=== PATIENT | female | born 1955 | race Caucasian/White ===

== ENCOUNTER → 2023-02-18 | Outpatient (CLI) | payer MEDICARE, OTHER | LOC: LAB SHORT 11:32 → PLD 11:32 → LAB 11:32 | DX: D04.5 Carcinoma in situ of skin of trunk (principal) | CPT/HCPCS: 88305 ==

== ENCOUNTER 2024-01-28 12:37 | Day surgery (SDC) | payer MEDICARE, OTHER ==
[~2024-01-28] VITALS: Ht 162.6 cm; Wt 69.1 kg
[~2024-01-28 12:37] MED LIST: AMLO10 PO; Balanced Salt Epinephrine Irrigation Solution 500 mL IR SCH; Lidocaine HCl/Pf 1% 5 ML VIAL XX SCH; Moxifloxacin HCL 0.5 MG/0.1 ML 0.4MLSYR LEFTEYE SCH; PHENYLEPHRINE\\TROPICAMIDE\\TETRACAINE OPHTHALMIC DILATING SOLN LEFTEYE PRN; Povidone-Iodine 450 DROP/30 ML Solution LEFTEYE SCH; Triamcinolone Inj Susp 40 MG / ML 1ML Vial INJ SCH; Triamcinolone Inj Susp 40 MG / ML 1ML Vial ONE; ZESTRIL40 M1 PO
[2024-01-28] MEDS ORDERED: Midazolam HCl 1MG / ML 2ML Vial ONE (13:45)
[2024-01-28] MEDS ORDERED: Tetracaine HCl 0.5% Opth Soln 15 ml LEFTEYE ONE (13:49)
[2024-01-28] MEDS ORDERED: Erythromycin 0.5% Opth Oint 1 gm ONE (14:18)
[2024-01-28 14:43] VITALS: BP 146/77
--- NOTE | 2024-01-28 14:58 | NUR ---
01/28/24 1458 LYDIA STOREY PT DECLINED USE OF WC. SBA TO CAR BY RN
== END 2024-01-28 14:43 | disposition home or self-care (01) ==
LOC: ORSCSDS 12:37
PROVIDERS: Ophthalmology
PROC: 08RK3JZ Replacement of Left Lens with Synthetic Substitute, Percutaneous Approach (ICD-10-PCS; principal; 2024-01-28 14:00)
DX: H25.813 Combined forms of age-related cataract, bilateral (principal); H21.81 Floppy iris syndrome; I10 Essential (primary) hypertension; Z79.899 Other long term (current) drug therapy
CPT/HCPCS: A9270; J2250; J3301; V2632

== ENCOUNTER → 2024-03-25 | Outpatient (CLI) | payer MEDICARE, OTHER ==
[~2024-03-25] MED LIST changes: -Balanced Salt Epinephrine Irrigation Solution 500 mL IR SCH; -Lidocaine HCl/Pf 1% 5 ML VIAL XX SCH; -Moxifloxacin HCL 0.5 MG/0.1 ML 0.4MLSYR LEFTEYE SCH; -PHENYLEPHRINE\\TROPICAMIDE\\TETRACAINE OPHTHALMIC DILATING SOLN LEFTEYE PRN; -Povidone-Iodine 450 DROP/30 ML Solution LEFTEYE SCH; -Triamcinolone Inj Susp 40 MG / ML 1ML Vial INJ SCH; -Triamcinolone Inj Susp 40 MG / ML 1ML Vial ONE
== END ==
LOC: LAB SHORT 16:59 → LAB 16:59
DX: N39.0 Urinary tract infection, site not specified (principal)
CPT/HCPCS: 87077; 87086; 87186

== ENCOUNTER → 2024-04-08 | Outpatient (CLI) | payer MEDICARE, OTHER ==
[2024-04-08 13:07] LABS: BASOPHILS ABSOLUTE AUTO 0.07 K/mm3 (0.00-0.23); BASOPHILS PERCENT AUTO 1 % (0-2); EOSINOPHILS ABSOLUTE AUTO 0.02 K/mm3 (0.00-0.68); EOSINOPHILS PERCENT AUTO 0 % (0-6); Hematocrit 34.7 % (33.0-51.0); Hemoglobin 11.9 g/dL (11.5-16.0); IMMATURE GRAN ABSOLUTE AUTO 0.15 K/mm3 (0.00-0.10); IMMATURE GRAN PERCENT AUTO 1 % (0-1); LYMPHOCYTES ABSOLUTE AUTO 1.73 K/mm3 (0.84-5.20); LYMPHOCYTES PERCENT AUTO 11 % (21-46); MONOCYTES ABSOLUTE AUTO 1.23 K/mm3 (0.16-1.47); MONOCYTES PERCENT AUTO 8 % (4-13); Mean Corpuscular HGB 31.2 pg (26.0-34.0); Mean Corpuscular HGB Conc 34.3 g/dL (31.5-36.5); Mean Corpuscular Volume 91 fL (80-100); Mean Platelet Volume 9.1 fL (9.1-12.4); NEUTROPHILS PERCENT AUTO 79 % (41-73); Platelet Count 436 K/mm3 (150-400); RDW Coefficient Variation 13.2 % (11.7-14.2); RDW Standard Deviation 43.2 fL (35.1-46.3); Red Blood Cell Count 3.82 M/mm3 (3.80-5.20)
[2024-04-08 13:16] LABS: Albumin/Globulin Ratio 0.7 (0.8-1.8); Bilirubin, Total 0.6 mg/dL (0.1-1.0); Bun/Creatinine Ratio 14.7 (12.0-20.0); Calcium, Blood 8.9 mg/dL (8.5-10.1); Creatinine, Blood 1.29 mg/dL (0.40-1.00); Globulin, Blood 4.4 g/dL (2.2-4.0); Potassium, Blood 3.7 mmol/L (3.5-5.5); Total Protein, Blood 7.4 g/dL (6.4-8.2)
== END | disposition home or self-care (01) ==
LOC: LAB SHORT 13:00 → LAB 13:00
DX: R10.2 Pelvic and perineal pain (principal); N39.0 Urinary tract infection, site not specified
CPT/HCPCS: 80053; 85025; 87077; 87086; 87186

== ENCOUNTER → 2024-04-09 | Outpatient (CLI) | payer MEDICARE, OTHER ==
[2024-04-09 13:03] LABS: BASOPHILS ABSOLUTE AUTO 0.09 K/mm3 (0.00-0.23); BASOPHILS PERCENT AUTO 1 % (0-2); EOSINOPHILS ABSOLUTE AUTO 0.11 K/mm3 (0.00-0.68); EOSINOPHILS PERCENT AUTO 1 % (0-6); Hematocrit 32.7 % (33.0-51.0); Hemoglobin 10.9 g/dL (11.5-16.0); IMMATURE GRAN ABSOLUTE AUTO 0.11 K/mm3 (0.00-0.10); IMMATURE GRAN PERCENT AUTO 1 % (0-1); LYMPHOCYTES ABSOLUTE AUTO 2.14 K/mm3 (0.84-5.20); LYMPHOCYTES PERCENT AUTO 15 % (21-46); MONOCYTES ABSOLUTE AUTO 1.22 K/mm3 (0.16-1.47); MONOCYTES PERCENT AUTO 9 % (4-13); Mean Corpuscular HGB 30.7 pg (26.0-34.0); Mean Corpuscular HGB Conc 33.3 g/dL (31.5-36.5); Mean Corpuscular Volume 92 fL (80-100); Mean Platelet Volume 8.8 fL (9.1-12.4); NEUTROPHILS PERCENT AUTO 74 % (41-73); Platelet Count 418 K/mm3 (150-400); RDW Coefficient Variation 13.1 % (11.7-14.2); RDW Standard Deviation 44.4 fL (35.1-46.3); Red Blood Cell Count 3.55 M/mm3 (3.80-5.20); White Blood Cell Count 14.37 K/mm3 (4.00-11.30)
[2024-04-09 13:17] LABS: Albumin, Blood 2.9 g/dL (3.4-5.0); Albumin/Globulin Ratio 0.7 (0.8-1.8); Bilirubin, Total 0.5 mg/dL (0.1-1.0); Bun/Creatinine Ratio 14.7 (12.0-20.0); Calcium, Blood 8.8 mg/dL (8.5-10.1); Creatinine, Blood 1.29 mg/dL (0.40-1.00); Potassium, Blood 3.6 mmol/L (3.5-5.5); Total Protein, Blood 6.9 g/dL (6.4-8.2)
== END | disposition home or self-care (01) ==
LOC: LAB SHORT 12:59 → LAB 12:59
PROVIDERS: Emergency Medicine
DX: N39.0 Urinary tract infection, site not specified (principal)
CPT/HCPCS: 80053; 85025

== ENCOUNTER → 2024-04-10 | Outpatient (CLI) | payer MEDICARE, OTHER ==
[2024-04-10 11:36] LABS: BASOPHILS ABSOLUTE AUTO 0.09 K/mm3 (0.00-0.23); BASOPHILS PERCENT AUTO 1 % (0-2); EOSINOPHILS ABSOLUTE AUTO 0.11 K/mm3 (0.00-0.68); EOSINOPHILS PERCENT AUTO 1 % (0-6); Hematocrit 32.3 % (33.0-51.0); IMMATURE GRAN ABSOLUTE AUTO 0.15 K/mm3 (0.00-0.10); IMMATURE GRAN PERCENT AUTO 1 % (0-1); LYMPHOCYTES ABSOLUTE AUTO 1.86 K/mm3 (0.84-5.20); LYMPHOCYTES PERCENT AUTO 14 % (21-46); MONOCYTES ABSOLUTE AUTO 1.05 K/mm3 (0.16-1.47); MONOCYTES PERCENT AUTO 8 % (4-13); Mean Corpuscular HGB Conc 34.1 g/dL (31.5-36.5); Mean Corpuscular Volume 91 fL (80-100); Mean Platelet Volume 8.9 fL (9.1-12.4); NEUTROPHILS ABSOLUTE AUTO 9.86 K/mm3 (1.96-9.15); NEUTROPHILS PERCENT AUTO 75 % (41-73); Platelet Count 457 K/mm3 (150-400); RDW Coefficient Variation 13.1 % (11.7-14.2); RDW Standard Deviation 43.4 fL (35.1-46.3); Red Blood Cell Count 3.55 M/mm3 (3.80-5.20); White Blood Cell Count 13.12 K/mm3 (4.00-11.30)
[2024-04-10 11:42] LABS: Bun/Creatinine Ratio 15.7 (12.0-20.0); Calcium, Blood 8.8 mg/dL (8.5-10.1); Creatinine, Blood 1.21 mg/dL (0.40-1.00); Potassium, Blood 3.7 mmol/L (3.5-5.5)
== END | disposition home or self-care (01) ==
LOC: LAB SHORT 11:32 → LAB 11:32
PROVIDERS: Physician Assistant Medical
DX: N28.9 Disorder of kidney and ureter, unspecified (principal)
CPT/HCPCS: 80048; 85025

== ENCOUNTER → 2024-04-21 | Outpatient (CLI) | payer MEDICARE, OTHER ==
[~2024-04-21] MED LIST changes: +OXYC5 PO
== END ==
LOC: LAB 17:11 → LAB SHORT 17:11
DX: R10.32 Left lower quadrant pain (principal); N17.9 Acute kidney failure, unspecified
CPT/HCPCS: 87086

== ENCOUNTER 2024-04-27 16:38 | Inpatient (IN) | payer MEDICARE, OTHER ==
[~2024-04-27] VITALS: Ht 162.6 cm; Wt 68.0 kg
[~2024-04-27 16:38] MED LIST changes: -OXYC5 PO
[2024-04-27 17:40] LABS: BASOPHILS ABSOLUTE AUTO 0.08 K/mm3 (0.00-0.23); BASOPHILS PERCENT AUTO 1 % (0-2); EOSINOPHILS ABSOLUTE AUTO 0.05 K/mm3 (0.00-0.68); EOSINOPHILS PERCENT AUTO 0 % (0-6); Hematocrit 32.1 % (33.0-51.0); Hemoglobin 11.2 g/dL (11.5-16.0); IMMATURE GRAN ABSOLUTE AUTO 0.16 K/mm3 (0.00-0.10); IMMATURE GRAN PERCENT AUTO 1 % (0-1); LYMPHOCYTES ABSOLUTE AUTO 2.22 K/mm3 (0.84-5.20); LYMPHOCYTES PERCENT AUTO 15 % (21-46); MONOCYTES ABSOLUTE AUTO 1.18 K/mm3 (0.16-1.47); MONOCYTES PERCENT AUTO 8 % (4-13); Mean Corpuscular HGB 30.9 pg (26.0-34.0); Mean Corpuscular HGB Conc 34.9 g/dL (31.5-36.5); Mean Corpuscular Volume 89 fL (80-100); Mean Platelet Volume 9.1 fL (9.1-12.4); NEUTROPHILS ABSOLUTE AUTO 11.64 K/mm3 (1.96-9.15); NEUTROPHILS PERCENT AUTO 76 % (41-73); Platelet Count 495 K/mm3 (150-400); RDW Coefficient Variation 14.5 % (11.7-14.2); RDW Standard Deviation 46.3 fL (35.1-46.3); Red Blood Cell Count 3.62 M/mm3 (3.80-5.20); White Blood Cell Count 15.33 K/mm3 (4.00-11.30)
[2024-04-27 18:25] LABS: Albumin, Blood 2.7 g/dL (3.4-5.0); Albumin/Globulin Ratio 0.7 (0.8-1.8); Bilirubin, Total 0.3 mg/dL (0.1-1.0); Bun/Creatinine Ratio 22.2 (12.0-20.0); Calcium, Blood 8.5 mg/dL (8.5-10.1); Creatinine, Blood 0.94 mg/dL (0.40-1.00); Globulin, Blood 3.8 g/dL (2.2-4.0); Total Protein, Blood 6.5 g/dL (6.4-8.2)
[2024-04-27 21:06] LABS: Source, Urine Clean Catch
[2024-04-27 21:10] LABS: Appearance, Urine Clear (Clear); Bilirubin, Urine Neg (Neg); Blood, Urine 1+ (Neg); Color, Urine Yellow (P-Yellow); Glucose Qualitative, Urine Neg (Neg); Ketones, Urine 1+ (Neg); Leukocyte Esterase, Urine 3+ (Neg); Nitrite, Urine Neg (Neg); Protein, Urine 2+ (Neg); Urobilinogen, Urine NORM (Normal)
[2024-04-27 21:22] LABS: Bacteria Many /hpf; Granular Casts 0-2 /lpf (0); Squamous Epithelial Cells Mod /hpf (Few); Transitional Epithelial Cells Rare /hpf (0-Rare)
[2024-04-27] MEDS ORDERED: NS 1,000 ML IV SCH (21:55)
[2024-04-27] MEDS ORDERED: CefTRIAXone Sodium 1,000 MG in NS 100 ML IV ONE (22:25)
[2024-04-27] MEDS ORDERED: Ondansetron HCl 2 MG / ML 2ML Vial IV PRN (22:55)
[2024-04-27] MEDS ORDERED: FLU VACC TS2024-25(6MOS UP)/PF 45 MCG/0.5 ML SYRINGE IM ONE (22:55)
[2024-04-27] MEDS ORDERED: NS 1,000 ML IV ONE (22:55)
[2024-04-27] MEDS ORDERED: FentaNYL Citrate 50 MCG/ML 2 ML Injection IV PRN (23:15)
--- NOTE | 2024-04-27 23:20 | NUR ---
PT HERE VIA WHEELCHAIR FROM ER. PT AMBULATORY TO MEDICAL FLOOR BED. PT IS IRRITABLE SHE REPORTS SHE WASN'T "ANTICIPATING BEING ADMITTED." REPORT FROM ER IS PT HAS BEEN UNSUCCESSFUL IN TREATING A UTI AN OUTPATIENT. PT DENIES ANY PAIN AT THIS TIME. PT IS NPO. CONSULT IN PLACE FOR DR. BUSTOS. SEE CT SCAN RESULTS. PT REPORTS URINATION HAS BEEN SLOW WITH BURNING. CALL LIGHT WITHIN REACH. BED IN LOW POSITION. PAS PLACED ON.
[2024-04-27 23:28] VITALS: BP 117/70
[2024-04-28] VITALS (9 sets, daily range): BP systolic 104–137; BP diastolic 55–85
--- NOTE | 2024-04-28 03:44 | NUR ---
BLADDER SCAN 174CC AFTER URINATION. CALL LIGHT WITHIN REACH. BED IN LOW POSITION.
--- NOTE | 2024-04-28 04:15 | NUR ---
SHIFT SUMMARY - NO ACUTE CHANGES SINCE ADMIT LAST NOC. PT UP TO BRP WITH CLEAR STRAW COLORED URINE OUT. BLADDER SCAN SHOWED 174 CC URINE PVR. PT'S ABDOMEN IS FIRM TO PALPATION, HOWEVER SEE RECENT CT SCAN REPORT. PT HAS A PELVIC MASS - GYNECOLOGY CONSULT IN PLACE, DR. BHANDARI CONSULT IN PLACE FOR POTENTIAL NEPHROSTOMY TUBE. PT USES THE CALL LIGHT APPROPRIATELY. PAS ON. PT IS NPO.
--- NOTE | 2024-04-28 04:27 | NUR ---
I SPOKE TO DR. MORENO - UPDATED HIM ON URINE OUTPUT OF 100, AND BLADDER SCAN RESULTS OF 174 - NO ORDER CHANGES. RECEIVED ORDER FOR TYLENOL - PT REQUESTING TYLENOL FOR PAIN.
[2024-04-28] MEDS ORDERED: Acetaminophen 325 MG TABLET PO PRN (04:30)
[2024-04-28 05:25] LABS: BASOPHILS ABSOLUTE AUTO 0.08 K/mm3 (0.00-0.23); BASOPHILS PERCENT AUTO 1 % (0-2); EOSINOPHILS ABSOLUTE AUTO 0.09 K/mm3 (0.00-0.68); EOSINOPHILS PERCENT AUTO 1 % (0-6); Hematocrit 30.1 % (33.0-51.0); Hemoglobin 10.2 g/dL (11.5-16.0); IMMATURE GRAN ABSOLUTE AUTO 0.14 K/mm3 (0.00-0.10); IMMATURE GRAN PERCENT AUTO 1 % (0-1); LYMPHOCYTES PERCENT AUTO 21 % (21-46); MONOCYTES ABSOLUTE AUTO 1.02 K/mm3 (0.16-1.47); MONOCYTES PERCENT AUTO 9 % (4-13); Mean Corpuscular HGB 30.5 pg (26.0-34.0); Mean Corpuscular HGB Conc 33.9 g/dL (31.5-36.5); Mean Corpuscular Volume 90 fL (80-100); Mean Platelet Volume 8.8 fL (9.1-12.4); NEUTROPHILS ABSOLUTE AUTO 8.05 K/mm3 (1.96-9.15); NEUTROPHILS PERCENT AUTO 68 % (41-73); Platelet Count 448 K/mm3 (150-400); RDW Coefficient Variation 14.8 % (11.7-14.2); RDW Standard Deviation 48.9 fL (35.1-46.3); Red Blood Cell Count 3.34 M/mm3 (3.80-5.20); White Blood Cell Count 11.88 K/mm3 (4.00-11.30)
[2024-04-28 05:55] LABS: Albumin, Blood 2.4 g/dL (3.4-5.0); Albumin/Globulin Ratio 0.8 (0.8-1.8); Bilirubin, Total 0.3 mg/dL (0.1-1.0); Bun/Creatinine Ratio 22.5 (12.0-20.0); Calcium, Blood 7.9 mg/dL (8.5-10.1); Creatinine, Blood 0.84 mg/dL (0.40-1.00); Globulin, Blood 3.2 g/dL (2.2-4.0); Total Protein, Blood 5.6 g/dL (6.4-8.2)
[2024-04-28 06:12] LABS: Alpha Feto Protein, Tumor Mkr 3.3 ng/mL (0.0-8.0); Carcinoembryonic Antigen 7.7 ng/mL (0.0-3.0)
[2024-04-28] MEDS ORDERED: NS 500 ML IV ONE ×2 (10:41→10:43)
[2024-04-28] MEDS ORDERED: Midazolam HCl 1MG / ML 2ML Vial ONE (10:42)
[2024-04-28] MEDS ORDERED: FentaNYL Citrate 50 MCG/ML 2 ML Injection ONE (10:43)
[2024-04-28] MEDS ORDERED: OxyCODONE HCL 5 MG TAB PO PRN (13:25)
[2024-04-28] MEDS ORDERED: OXYC5 PO ×2 (16:22)
--- NOTE | 2024-04-28 18:13 | NUR ---
PT DISCHARGED HOME WITH HOME HEALTH, UROSTOMY BAG CHANGED PRIOR TO DISCHARGE AFTER PT SAT ON AND POPPED BAG. PT EDUCATION PROVIDED ON UROSTOMY CARE. DISCHARGE INSTRUCTIONS DISCUSSED WITH PT. PT LEFT BY WHEEL CHAIR ACCOMPANIED BY FRIEND.
[2024-04-28] MEDS ORDERED: CefTRIAXone Sodium 1,000 MG in NS 100 ML IV SCH (21:00)
== END 2024-04-28 17:41 | disposition home health service (06) | DRG 694 ==
LOC: ER 16:38 → MEDS 16:39
PROVIDERS: Student in an Organized Health Care Education/Training Program; ADMIT Internal Medicine
PROC: 0T9330Z Drainage of Right Kidney Pelvis with Drainage Device, Percutaneous Approach (ICD-10-PCS; principal; 2024-04-28)
DX: N13.39 Other hydronephrosis (principal); F17.213 Nicotine dependence, cigarettes, with withdrawal; I10 Essential (primary) hypertension; E78.5 Hyperlipidemia, unspecified; R19.09 Other intra-abdominal and pelvic swelling, mass and lump; K74.60 Unspecified cirrhosis of liver; Z88.0 Allergy status to penicillin; N17.9 Acute kidney failure, unspecified; R10.32 Left lower quadrant pain
CPT/HCPCS: 36415; 50432; 74176; 76937; 80053; 81001; 82105; 82378; 83690; 85025; 86304; 87086; 93005; 93010; 96365; 96375; 99152; 99285-25; A9270; C1729; C1769; G0378; J0696; J2250; J3010; J7030; J7040; Q9967

== ENCOUNTER 2024-06-21 11:51 | Day surgery (SDC) | payer MEDICARE, OTHER ==
[~2024-06-21] VITALS: Ht 162.6 cm; Wt 56.8 kg
[2024-06-21] VITALS (8 sets, daily range): BP systolic 119–149; BP diastolic 73–90
[~2024-06-21 11:51] MED LIST changes: +ACET325 PO; +CeFAZolin Sodium 2,000 MG in NS 100 ML IV SCH; +FURO20 PO; +NS 1,000 ML IV SCH; +OXYC5 PO; +SENN187 PO; +SPIR50 PO
[2024-06-21] MEDS ORDERED: Lidocaine HCL 1% 10 ML MDV ONE (12:23)
[2024-06-21] MEDS ORDERED: Ondansetron HCl 2 MG / ML 2ML Vial ONE (12:27)
[2024-06-21] MEDS ORDERED: Dexamethasone Sod Phos 10 MG/ML 1ML VIAL ONE (12:27)
[2024-06-21] MEDS ORDERED: propofoL 40 ML IV ONE (12:34)
[2024-06-21] MEDS ORDERED: Acetaminophen 500 MG Tab PO ONE (12:45)
[2024-06-21] MEDS ORDERED: FentaNYL Citrate 50 MCG/ML 2 ML Injection ONE (12:59)
[2024-06-21] MEDS ORDERED: Ketorolac Tromethamine 30mg Vial ONE (13:24)
--- NOTE | 2024-06-21 13:32 | NUR ---
06/21/24 1332 Roney,Meenu SCD STOCKINGS NOT APPLIED TO PATIENTS BILATERAL LOWER LEGS PER DUE TO BILATERAL LOWER LEG AND FOOT WOUNDS. BILATERAL LOWER LEGS AND FEET WERE DRESSED IN DAVE BANDAGES PRIOR TO ENTRY IN OR.
[2024-06-21] MEDS ORDERED: HYDROcodone 5-APAP 325 TAB PO PRN (13:50)
--- NOTE | 2024-06-21 14:13 | NUR ---
REPORT RECEIVED FROM CHRISTIANO RAE. VSS. PT A&OX4. PT ON RA. PT ABLE TO REPOSITION SELF IN BED. PT REQUESTING PO FLUIDS AND TOLERATING THEM WELL. PT HAS DERMABOND TO R CHEST MEDIPORT THAT IS CDI. PT DENIES PAIN, NAUSEA OR OTHER DISCOMFORTS.
--- NOTE | 2024-06-21 14:41 | NUR ---
Patient up to Ambulate independently. Gait steady. VSS AND CONSISTENT WITH PT BASELINE. PT HAS NO COMPLAINTS AND VERBALIZES READINESS TO GO HOME. Discharge instructions reviewed with patient. Patient verbalizes understanding. Copy given to patient to take home. Dressing to procedure site clean, dry, intact with no visible drainage, swelling, erythema or bruising noted. Patient States Post-Procedure ride home has been arranged. Discharged via wheelchair to private car for ride home. PT BELONGINGS RETURNED TO PT.
== END 2024-06-21 14:40 ==
LOC: ORSCMMR 11:51
PROVIDERS: Surgery
PROC: B543ZZA Ultrasonography of Right Jugular Veins, Guidance (ICD-10-PCS; principal; 2024-06-21 12:00)
PROC: 0JH63WZ Insertion of Totally Implantable Vascular Access Device into Chest Subcutaneous Tissue and Fascia, Percutaneous Approach (ICD-10-PCS; principal; 2024-06-21 12:00)
PROC: 05HM33Z Insertion of Infusion Device into Right Internal Jugular Vein, Percutaneous Approach (ICD-10-PCS; principal; 2024-06-21 12:00)
DX: C54.8 Malignant neoplasm of overlapping sites of corpus uteri (principal); I10 Essential (primary) hypertension; J43.9 Emphysema, unspecified; I25.2 Old myocardial infarction; F17.210 Nicotine dependence, cigarettes, uncomplicated; Z79.899 Other long term (current) drug therapy
CPT/HCPCS: 77001; A9270; C1788; J0690; J1100; J1642; J1885; J2003; J2405; J2704; J3010; J7030

== ENCOUNTER 2024-06-28 12:10 | Observation (INO) | payer MEDICARE, OTHER ==
[~2024-06-28] VITALS: Ht 162.6 cm; Wt 59.8 kg
[~2024-06-28 12:10] MED LIST changes: -CeFAZolin Sodium 2,000 MG in NS 100 ML IV SCH; -NS 1,000 ML IV SCH
[2024-06-28 12:41] LABS: Hematocrit 28.6 % (33.0-51.0); Hemoglobin 9.8 g/dL (11.5-16.0); Mean Corpuscular HGB 30.5 pg (26.0-34.0); Mean Corpuscular HGB Conc 34.3 g/dL (31.5-36.5); Mean Corpuscular Volume 89 fL (80-100); Mean Platelet Volume 9.3 fL (9.1-12.4); Platelet Count 199 K/mm3 (150-400); RDW Standard Deviation 52.7 fL (35.1-46.3); Red Blood Cell Count 3.21 M/mm3 (3.80-5.20)
[2024-06-28 13:21] LABS: Albumin, Blood 1.9 g/dL (3.4-5.0); Albumin/Globulin Ratio 0.6 (0.8-1.8); Bilirubin, Total 0.6 mg/dL (0.1-1.0); Bun/Creatinine Ratio 28.7 (12.0-20.0); Creatinine, Blood 1.78 mg/dL (0.40-1.00); Globulin, Blood 3.3 g/dL (2.2-4.0); Potassium, Blood 4.5 mmol/L (3.5-5.5); Total Protein, Blood 5.2 g/dL (6.4-8.2)
[2024-06-28 13:24] LABS: BAND PERCENT MAN 5 % (0-8); BASOPHILS PERCENT MAN 0 % (0-2); EOSINOPHILS PERCENT MAN 0 % (0-6); LYMPHOCYTES ABSOLUTE MAN 0.93 K/mm3 (0.84-5.20); LYMPHOCYTES PERCENT MAN 3 % (21-46); MONOCYTES ABSOLUTE MAN 1.24 K/mm3 (0.16-1.47); MONOCYTES PERCENT MAN 4 % (4-13); NEUTROPHILS ABSOLUTE MAN 28.83 K/mm3 (1.96-9.15); SEG NEUTROPHILS PERCENT MAN 88 % (41-73); TOTAL CELLS COUNTED 100
[2024-06-28 14:14] LABS: Influenza A, PCR NEGATIVE (NEGATIVE); Influenza B, PCR NEGATIVE (NEGATIVE); Resp Syncytial Virus, PCR NEGATIVE (NEGATIVE); SARS-Cov-2 (COVID-19) PCR, MMC NEGATIVE (NEGATIVE)
[2024-06-28] MEDS ORDERED: LevoFLOXacin 750 MG/D5W 150ML 150 ML IV ONE (14:35)
[2024-06-28] MEDS ORDERED: Lactated Ringer's 1,000 ML IV ONE (14:35)
[2024-06-28] MEDS ORDERED: MetroNIDAZOLE 500MG/NS 100 ml 100 ML IV ONE (14:35)
[2024-06-28] MEDS ORDERED: HYDROmorphone HCl/Pf 1MG SYR IV PRN (17:40)
[2024-06-28] MEDS ORDERED: Morphine Sulfate 20 MG/1ML 1 ML Oral Syringe SL PRN (17:40)
[2024-06-28] MEDS ORDERED: Morphine Sulfate 10 MG/ML 1MLSYR IV PRN (17:40)
[2024-06-28] MEDS ORDERED: LORazepam 1 MG Tab PO PRN (17:40)
[2024-06-28] MEDS ORDERED: Acetaminophen 325 MG TABLET PO PRN (17:45)
[2024-06-28] MEDS ORDERED: Atropine Sulfate 1% Opth Soln 2ML BTL SL PRN (17:45)
[2024-06-28] MEDS ORDERED: Promethazine HCl 25 MG Tab PO PRN (17:45)
[2024-06-28] MEDS ORDERED: Promethazine HCl 25 MG Supp PR PRN (17:45)
[2024-06-28] MEDS ORDERED: Acetaminophen 650 MG Supp PR PRN (17:45)
[2024-06-28] MEDS ORDERED: Ondansetron HCl 2 MG / ML 2ML Vial IV PRN (17:45)
[2024-06-28] MEDS ORDERED: Haloperidol Lactate Inj. 5 MG/ML Injection IV PRN (17:50)
[2024-06-28] MEDS ORDERED: Haloperidol Lactate 2 MG / ML 15ML BTL PO PRN (17:50)
[2024-06-28] MEDS ORDERED: Scopolamine Hydrobromide Patch TOP PRN (17:50)
[2024-06-28] MEDS ORDERED: Nicotine 14 MG PATCH TOP ONE (18:40)
[2024-06-28 20:30] VITALS: BP 88/64
[2024-06-29] MEDS ORDERED: LORazepam 1 MG Tab PO PRN (01:25)
[2024-06-29] MEDS ORDERED: Omeprazole 20 MG CapCR PO SCH (06:00)
--- NOTE | 2024-06-29 06:28 | NUR ---
NEW ER ADMIT THIS SHIFT (2129) A&OX4, BEDBOUND, SLEPT T/O THE NIGHT AND SLEEPING AT THIS TIME, WOUND CARE COMPLETED (PHOTOS IN CHART, REPOSITIN WHILE AWAKE (PT ASKED NOT TO BE WOKE FOR CARES UNLESS NECESSARY)
[2024-06-29] MEDS ORDERED: Nicotine 14 MG PATCH TOP SCH (09:00)
--- NOTE | 2024-06-29 17:19 | NUR ---
DISCHARGE HOME PT DISCHARGED HOME TO HER CAREGIVER CARE. IV REMOVED WITH CANNULA INTACT. PT TRANSFERED TO /C WITH 2 ASSIST AND GAIT BELT. TOLERATED WELL. CARE ONGOING.
== END 2024-06-29 17:19 | disposition hospice, home (50) ==
LOC: ER 12:10 → ERHOLD 12:11 → MEDS 21:25
PROVIDERS: Student in an Organized Health Care Education/Training Program; ADMIT Family Medicine
DX: C55 Malignant neoplasm of uterus, part unspecified (principal); C78.7 Secondary malignant neoplasm of liver and intrahepatic bile duct; C78.6 Secondary malignant neoplasm of retroperitoneum and peritoneum; I10 Essential (primary) hypertension; R62.7 Adult failure to thrive; F17.200 Nicotine dependence, unspecified, uncomplicated; E87.1 Hypo-osmolality and hyponatremia; I26.99 Other pulmonary embolism without acute cor pulmonale; Z51.5 Encounter for palliative care; Z66 Do not resuscitate; Z88.0 Allergy status to penicillin; Z79.899 Other long term (current) drug therapy
CPT/HCPCS: 0241U; 36416; 71045; 71260; 74177; 80053; 83605; 83690; 83880; 84484; 85025; 85379; 87040; 87076; 93005; 93010; 96365-59; 96367; 99285-25; A9270; G0378; J1956; J7120; Q9967